=== PATIENT | female | born 1940 | race Caucasian/White ===

== ENCOUNTER 2023-01-01 07:29 | Emergency (ER) | payer MEDICARE, OTHER ==
[~2023-01-01] VITALS: Ht 162.6 cm; Wt 88.9 kg
[2023-01-01] MEDS ORDERED: TEMA15CA PO (08:10)
[2023-01-01] MEDS ORDERED: INSU100C4 SQ (08:10)
[2023-01-01] MEDS ORDERED: SITA100T PO (08:10)
[2023-01-01] MEDS ORDERED: SIRO1TAB6 PO (08:10)
[2023-01-01] MEDS ORDERED: GABA-536 PO (08:10)
[2023-01-01] MEDS ORDERED: ATOR40TA PO (08:10)
[2023-01-01] MEDS ORDERED: METF-494 PO (08:10)
[2023-01-01] MEDS ORDERED: LEVO50TA8 PO (08:10)
[2023-01-01] MEDS ORDERED: LIOT5TAB11 PO (08:10)
[2023-01-01] MEDS ORDERED: INSU100V7 SQ (08:10)
[2023-01-01] MEDS ORDERED: MIRT-73 PO (08:10)
[2023-01-01] MEDS ORDERED: CARV25TA2 PO (08:10)
[2023-01-01] MEDS ORDERED: AMLO-212 PO (08:10)
[2023-01-01] MEDS ORDERED: BENA40TA8 PO (08:10)
[2023-01-01] MEDS ORDERED: FLUO40CA49 PO (08:10)
[2023-01-01 08:17] LABS: BASOPHILS # (AUTO) 0.1 K/UL (0.0-0.2); BASOPHILS % (AUTO) 1.3 % (0.0-2.0); EOSINOPHILS # (AUTO) 0.1 K/uL (0.0-0.7); HEMATOCRIT 38.4 % (31.2-41.9); HEMOGLOBIN 12.4 g/dL (10.9-14.3); LYMPHOCYTES # (AUTO) 1.9 K/uL (0.8-4.8); LYMPHOCYTES % (AUTO) 25.9 % (20.5-51.5); MEAN CORPUSCULAR HEMOGLOBIN 25.5 uug (24.7-32.8); MEAN CORPUSCULAR HGB CONC 32 g/dL (32.3-35.6); MEAN CORPUSCULAR VOLUME 79.3 fL (75.5-95.3); MONOCYTES # (AUTO) 0.7 K/uL (0.1-1.30); MONOCYTES % (AUTO) 9.9 % (0.0-11.0); NEUTROPHILS # (AUTO) 4.5 K/uL (1.8-8.9); NEUTROPHILS % (AUTO) 60.9 % (38.5-71.5); PLATELET COUNT (AUTO) 338 K/uL (179-408); RED BLOOD CELL COUNT(AUTO) 4.84 MIL/uL (3.63-4.92); WHITE BLOOD COUNT (AUTO) 7.5 K/uL (3.8-11.8)
[2023-01-01 08:30] LABS: DIFFERENTIAL COMMENT 1
[2023-01-01 09:13] LABS: CALCIUM 9.3 mg/dL (8.5-10.1); CARBON DIOXIDE 24 mmol/L (21-32); CHLORIDE 101 mmol/L (98-107); GLUCOSE 275 mg/dL (74-106); SODIUM SERUM 136 mmol/L (136-145); UREA NITROGEN, BLOOD 23 mg/dL (7-18)
[2023-01-01 11:27] VITALS: BP 131/61; O2SAT 98
== END 2023-01-01 11:30 | disposition home or self-care (01) ==
LOC: ER 07:29
DX: M79.89 Other specified soft tissue disorders (principal); I25.10 Atherosclerotic heart disease of native coronary artery without angina pectoris; E11.40 Type 2 diabetes mellitus with diabetic neuropathy, unspecified; F32.A Depression, unspecified; E78.5 Hyperlipidemia, unspecified; E66.9 Obesity, unspecified; E03.9 Hypothyroidism, unspecified; Z79.4 Long term (current) use of insulin; Z79.899 Other long term (current) drug therapy; Z60.2 Problems related to living alone; Z88.2 Allergy status to sulfonamides
CPT/HCPCS: 36415; 85025; 85730; A4606; A4663

== ENCOUNTER 2023-03-04 08:06 | Inpatient (IN) | payer MEDICARE, OTHER ==
[~2023-03-04] VITALS: Ht 162.6 cm; Wt 86.4 kg
[~2023-03-04 08:06] MED LIST: AMLO-212 PO; ATOR40TA PO; BENA40TA8 PO; CARV25TA2 PO; FLUO40CA49 PO; GABA-536 PO; INSU100C4 SQ; INSU100V7 SQ; LEVO50TA8 PO; LIOT5TAB11 PO; METF-494 PO; MIRT-73 PO; SIRO1TAB6 PO; SITA100T PO; TEMA15CA PO
[2023-03-04 09:22] LABS: BASOPHILS # (AUTO) 0.2 K/UL (0.0-0.2); BASOPHILS % (AUTO) 1.8 % (0.0-2.0); EOSINOPHILS # (AUTO) 0.2 K/uL (0.0-0.7); EOSINOPHILS % (AUTO) 1.6 % (0.0-7.0); HEMATOCRIT 35.3 % (31.2-41.9); HEMOGLOBIN 11.2 g/dL (10.9-14.3); LYMPHOCYTES # (AUTO) 0.9 K/uL (0.8-4.8); LYMPHOCYTES % (AUTO) 8.1 % (20.5-51.5); MEAN CORPUSCULAR HEMOGLOBIN 25.1 uug (24.7-32.8); MEAN CORPUSCULAR HGB CONC 32 g/dL (32.3-35.6); MEAN CORPUSCULAR VOLUME 78.9 fL (75.5-95.3); MONOCYTES # (AUTO) 0.8 K/uL (0.1-1.30); MONOCYTES % (AUTO) 7.1 % (0.0-11.0); NEUTROPHILS # (AUTO) 8.9 K/uL (1.8-8.9); NEUTROPHILS % (AUTO) 81.4 % (38.5-71.5); PLATELET COUNT (AUTO) 329 K/uL (179-408); RED BLOOD CELL COUNT(AUTO) 4.47 MIL/uL (3.63-4.92); RED CELL DISTRIBUTION WIDTH 19.3 % (12.3-17.7)
[2023-03-04 09:30] LABS: DIFFERENTIAL COMMENT 1
[2023-03-04 09:35] LABS: CALCIUM 9.3 mg/dL (8.5-10.1); CARBON DIOXIDE 28 mmol/L (21-32); CHLORIDE 106 mmol/L (98-107); CREATININE 0.8 mg/dL (0.6-1.3); GLUCOSE 209 mg/dL (74-106); POTASSIUM 3.5 mmol/L (3.5-5.1); SODIUM SERUM 142 mmol/L (136-145); UREA NITROGEN, BLOOD 21 mg/dL (7-18)
[2023-03-04 09:49] LABS: ALANINE AMINOTRANSFERASE 116 U/L (14-59); ALBUMIN 3.1 g/dL (3.4-5.0); ALKALINE PHOSPHATASE 160 U/L (50-136); ASPARTATE AMINOTRANSFERASE 69 U/L (15-37); BILIRUBIN,DIRECT 0.2 mg/dL (0.0-0.2); BILIRUBIN,TOTAL 0.6 mg/dL (0.2-1.0); NT-PRO BNP 951 pg/mL (0-125); TOTAL PROTEIN, SERUM 6.8 g/dL (6.4-8.2)
[2023-03-04] MEDS ORDERED: DEXAMETHASONE SOD PHOSPHATE 4 MG INJ IV ONE (10:00)
[2023-03-04] MEDS ORDERED: CEFTRIAXONE 1 G in IV DEXTROSE 5% 50 ML IV ONE (10:00)
[2023-03-04] MEDS ORDERED: AZITHROMYCIN 250 MG TABLET PO ONE (10:00)
[2023-03-04] MEDS ORDERED: DEXAMETHASONE SOD PHOSPHATE 10 MG INJ ONE (10:09)
[2023-03-04] MEDS ORDERED: CEFTRIAXONE /D5W 50ML IVPB **ER PYXIS IV ONE (10:09)
[2023-03-04] MEDS ORDERED: AZITHROMYCIN 250 MG TABLET ONE (10:09)
[2023-03-04] MEDS ORDERED: ACETAMINOPHEN 325 MG TABLET PO PRN (14:30)
[2023-03-04] MEDS ORDERED: TEMAZEPAM 15 MG CAPSULE PO PRN (14:30)
[2023-03-04] MEDS ORDERED: ALBUTEROL SULFATE 2.5 MG/ 0.5 ML NEBU NEB PRN (14:30)
[2023-03-04] MEDS ORDERED: MORPHINE SULFATE 2 MG/1 ML DISP.SYRIN IV PRN (14:30)
[2023-03-04] MEDS ORDERED: DEXTROSE 50% 50 ML DISP.SYRIN IV PRN (14:30)
[2023-03-04] MEDS ORDERED: ONDANSETRON 4 MG/2 ML VIAL IV PRN (14:30)
[2023-03-04] MEDS ORDERED: MAGNESIUM HYDROXIDE 30 ML LIQUID UDC PO PRN (14:30)
[2023-03-04] MEDS: BLOOD SUGAR DIAGNOSTIC 1 EACH STRIP VI SCH ×2 (16:30→21:57)
[2023-03-04] MEDS ORDERED: GABAPENTIN 400 MG CAPSULE PO SCH (17:00)
[2023-03-04 20:40] VITALS: BP 186/82; TEMP 97.8; O2SAT 96
[2023-03-04] MEDS ORDERED: DOCUSATE SODIUM 250 MG CAPSULE PO SCH (21:00)
[2023-03-04] MEDS ORDERED: MIRTAZAPINE 15 MG TAB.RAPDIS PO SCH (21:00)
[2023-03-04] MEDS: INSULIN REGULAR, HUMAN 300 UNIT/3 ML VIAL SQ PRN (22:01)
[2023-03-04] MEDS: ATORVASTATIN 40 MG TABLET PO SCH (22:03)
[2023-03-04] MEDS ORDERED: INSULIN GLARGINE,HUM 300 UNITS/3 ML CARTRIDGE SQ ONE (22:06)
[2023-03-04] MEDS ORDERED: MIRTAZAPINE 15 MG TAB.RAPDIS ONE (22:07)
[2023-03-04] MEDS: DOCUSATE SODIUM 100 MG CAPSULE PO SCH (22:37)
[2023-03-04] MEDS: METOPROLOL TARTRATE 50 MG TABLET PO SCH (22:37)
[2023-03-04] MEDS: INSULIN GLARGINE,HUM 300 UNITS/3 ML CARTRIDGE SQ SCH (22:38)
[2023-03-05] VITALS: BP 155/67; TEMP 97.9; O2SAT 94
[2023-03-05 04:00] VITALS: BP 186/82; TEMP 97.9; O2SAT 96
[2023-03-05] MEDS: LEVOTHYROXINE SODIUM 50 MCG TABLET PO SCH (06:38)
[2023-03-05] MEDS: PANTOPRAZOLE SODIUM 40 MG TABLET.DR PO SCH (06:38)
[2023-03-05] MEDS: LIOTHYRONINE SODIUM 5 MCG TABLET PO SCH (06:39)
[2023-03-05] MEDS: BLOOD SUGAR DIAGNOSTIC 1 EACH STRIP VI SCH ×4 (06:43→20:44)
[2023-03-05 07:55] LABS: BASOPHILS # (AUTO) 0.1 K/UL (0.0-0.2); BASOPHILS % (AUTO) 0.4 % (0.0-2.0); HEMATOCRIT 35.2 % (31.2-41.9); HEMOGLOBIN 11.3 g/dL (10.9-14.3); LYMPHOCYTES # (AUTO) 1.4 K/uL (0.8-4.8); LYMPHOCYTES % (AUTO) 10.6 % (20.5-51.5); MEAN CORPUSCULAR HGB CONC 32 g/dL (32.3-35.6); MEAN CORPUSCULAR VOLUME 77.8 fL (75.5-95.3); MONOCYTES # (AUTO) 1.1 K/uL (0.1-1.30); MONOCYTES % (AUTO) 7.9 % (0.0-11.0); NEUTROPHILS # (AUTO) 11.1 K/uL (1.8-8.9); NEUTROPHILS % (AUTO) 81.1 % (38.5-71.5); PLATELET COUNT (AUTO) 396 K/uL (179-408); RED BLOOD CELL COUNT(AUTO) 4.52 MIL/uL (3.63-4.92); RED CELL DISTRIBUTION WIDTH 19.5 % (12.3-17.7); WHITE BLOOD COUNT (AUTO) 13.7 K/uL (3.8-11.8)
[2023-03-05 08:08] LABS: DIFFERENTIAL COMMENT 1
[2023-03-05 08:18] LABS: ALANINE AMINOTRANSFERASE 96 U/L (14-59); ALKALINE PHOSPHATASE 155 U/L (50-136); ASPARTATE AMINOTRANSFERASE 42 U/L (15-37); BILIRUBIN,TOTAL 0.4 mg/dL (0.2-1.0); CALCIUM 9.5 mg/dL (8.5-10.1); CARBON DIOXIDE 25 mmol/L (21-32); CHLORIDE 106 mmol/L (98-107); CREATININE 0.8 mg/dL (0.6-1.3); GLUCOSE 233 mg/dL (74-106); MAGNESIUM 2.1 mg/dL (1.8-2.4); PHOSPHOROUS 3.5 mg/dL (2.5-4.9); POTASSIUM 3.7 mmol/L (3.5-5.1); SODIUM SERUM 141 mmol/L (136-145); TOTAL PROTEIN, SERUM 7.1 g/dL (6.4-8.2); UREA NITROGEN, BLOOD 22 mg/dL (7-18)
[2023-03-05 08:27] LABS: THYROID STIMULATING HORMONE 0.422 mIU/mL (0.358-3.740)
[2023-03-05] MEDS: FLUOXETINE HCL 20 MG CAPSULE PO SCH (08:39)
[2023-03-05] MEDS: BENAZEPRIL HCL 20 MG TABLET PO SCH (08:39)
[2023-03-05] MEDS: METOPROLOL TARTRATE 50 MG TABLET PO SCH (08:40)
[2023-03-05] MEDS: LINAGLIPTIN 5 MG TABLET PO SCH (08:40)
[2023-03-05] MEDS: CEFTRIAXONE 1 G in IV DEXTROSE 5% 50 ML IV SCH (08:45)
[2023-03-05] MEDS: ENOXAPARIN SODIUM 30 MG/0.3 ML DISP.SYRIN SUBCUT SCH (08:47)
[2023-03-05] MEDS ORDERED: SIROLIMUS 3 MG PO SCH (09:00)
[2023-03-05] MEDS ORDERED: AMLODIPINE 5 MG TABLET PO SCH (09:00)
[2023-03-05] MEDS ORDERED: AMLODIPINE 5 MG TABLET PO ONE (09:00)
[2023-03-05] MEDS ORDERED: GABAPENTIN 400 MG CAPSULE PO SCH (09:00)
[2023-03-05 09:02] LABS: IRON, SERUM 35 ug/dL (50-175)
[2023-03-05] MEDS ORDERED: CEFTRIAXONE 1 G in IV DEXTROSE 5% 50 ML IV SCH (10:00)
[2023-03-05] MEDS: BUMETANIDE 1 MG TABLET PO SCH (10:00)
[2023-03-05] MEDS: AZITHROMYCIN IV 500 MG in IV DEXTROSE 5% 250 ML IV SCH (10:08)
[2023-03-05 11:46] VITALS: BP 169/65; TEMP 97.6; O2SAT 95
[2023-03-05] MEDS: INSULIN REGULAR, HUMAN 300 UNIT/3 ML VIAL SQ PRN ×2 (11:48→20:35)
[2023-03-05 14:28] VITALS: O2SAT 95
[2023-03-05 16:20] VITALS: BP 164/63; TEMP 97.7; O2SAT 96
[2023-03-05] MEDS: CARVEDILOL 25 MG TABLET PO SCH (17:15)
[2023-03-05 20:16] VITALS: BP 150/77; TEMP 98.2; O2SAT 93
[2023-03-05] MEDS: DOCUSATE SODIUM 100 MG CAPSULE PO SCH (20:34)
[2023-03-05] MEDS: ATORVASTATIN 40 MG TABLET PO SCH (20:34)
[2023-03-05] MEDS: INSULIN GLARGINE,HUM 300 UNITS/3 ML CARTRIDGE SQ SCH (20:41)
[2023-03-05] MEDS: MIRTAZAPINE 15 MG TABLET PO SCH (20:48)
[2023-03-06] VITALS (8 sets, daily range): BP systolic 122–183; BP diastolic 57–87; TEMP 97.5–98.4; O2SAT 92–97
[2023-03-06] MEDS: LIOTHYRONINE SODIUM 5 MCG TABLET PO SCH (06:33)
[2023-03-06] MEDS: BLOOD SUGAR DIAGNOSTIC 1 EACH STRIP VI SCH ×4 (06:33→21:14)
[2023-03-06] MEDS: LEVOTHYROXINE SODIUM 50 MCG TABLET PO SCH (06:33)
[2023-03-06] MEDS: PANTOPRAZOLE SODIUM 40 MG TABLET.DR PO SCH (06:33)
[2023-03-06] MEDS ORDERED: hydrALAZINE HCL 50 MG TABLET PO SCH (07:45)
[2023-03-06] MEDS: BUMETANIDE 1 MG TABLET PO SCH (08:33)
[2023-03-06] MEDS: FLUOXETINE HCL 20 MG CAPSULE PO SCH (08:33)
[2023-03-06] MEDS: LINAGLIPTIN 5 MG TABLET PO SCH (08:33)
[2023-03-06] MEDS: CARVEDILOL 25 MG TABLET PO SCH ×2 (08:33→17:19)
[2023-03-06] MEDS: BENAZEPRIL HCL 20 MG TABLET PO SCH (08:34)
[2023-03-06] MEDS: ENOXAPARIN SODIUM 30 MG/0.3 ML DISP.SYRIN SUBCUT SCH (08:34)
[2023-03-06] MEDS: CEFTRIAXONE 1 G in IV DEXTROSE 5% 50 ML IV SCH (08:35)
[2023-03-06] MEDS ORDERED: AMLODIPINE 5 MG TABLET PO ONE (09:15)
[2023-03-06] MEDS: AZITHROMYCIN IV 500 MG in IV DEXTROSE 5% 250 ML IV SCH (10:23)
[2023-03-06] MEDS: GABAPENTIN 300 MG CAPSULE PO SCH ×3 (11:56→17:19)
[2023-03-06] MEDS: INSULIN REGULAR, HUMAN 300 UNIT/3 ML VIAL SQ PRN ×2 (11:57→21:17)
[2023-03-06] MEDS: hydrALAZINE HCL 25 MG TABLET PO PRN (15:02)
[2023-03-06 15:12] LABS: BASOPHILS # (AUTO) 0.1 K/UL (0.0-0.2); BASOPHILS % (AUTO) 1.2 % (0.0-2.0); EOSINOPHILS # (AUTO) 0.4 K/uL (0.0-0.7); EOSINOPHILS % (AUTO) 3.6 % (0.0-7.0); HEMATOCRIT 37.2 % (31.2-41.9); HEMOGLOBIN 11.8 g/dL (10.9-14.3); LYMPHOCYTES # (AUTO) 1.7 K/uL (0.8-4.8); LYMPHOCYTES % (AUTO) 16.6 % (20.5-51.5); MEAN CORPUSCULAR HEMOGLOBIN 24.8 uug (24.7-32.8); MEAN CORPUSCULAR HGB CONC 32 g/dL (32.3-35.6); MEAN CORPUSCULAR VOLUME 78.2 fL (75.5-95.3); MONOCYTES # (AUTO) 1.1 K/uL (0.1-1.30); MONOCYTES % (AUTO) 11.1 % (0.0-11.0); NEUTROPHILS % (AUTO) 67.5 % (38.5-71.5); PLATELET COUNT (AUTO) 369 K/uL (179-408); RED BLOOD CELL COUNT(AUTO) 4.76 MIL/uL (3.63-4.92); RED CELL DISTRIBUTION WIDTH 19.3 % (12.3-17.7); WHITE BLOOD COUNT (AUTO) 10.4 K/uL (3.8-11.8)
[2023-03-06 15:17] LABS: DIFFERENTIAL COMMENT 1
[2023-03-06] MEDS: INSULIN GLARGINE,HUM 300 UNITS/3 ML CARTRIDGE SQ SCH (21:15)
[2023-03-06] MEDS: ATORVASTATIN 40 MG TABLET PO SCH (21:18)
[2023-03-06] MEDS: MIRTAZAPINE 15 MG TABLET PO SCH (21:18)
[2023-03-06] MEDS: DOCUSATE SODIUM 100 MG CAPSULE PO SCH (21:18)
[2023-03-07 04:38] VITALS: BP 178/83; TEMP 97.8; O2SAT 96
[2023-03-07] MEDS: PANTOPRAZOLE SODIUM 40 MG TABLET.DR PO SCH (06:08)
[2023-03-07] MEDS: LEVOTHYROXINE SODIUM 50 MCG TABLET PO SCH (06:08)
[2023-03-07] MEDS: LIOTHYRONINE SODIUM 5 MCG TABLET PO SCH (06:09)
[2023-03-07 07:25] LABS: BASOPHILS # (AUTO) 0.1 K/UL (0.0-0.2); BASOPHILS % (AUTO) 0.7 % (0.0-2.0); EOSINOPHILS # (AUTO) 0.4 K/uL (0.0-0.7); EOSINOPHILS % (AUTO) 4.9 % (0.0-7.0); HEMATOCRIT 37.7 % (31.2-41.9); HEMOGLOBIN 12.1 g/dL (10.9-14.3); LYMPHOCYTES # (AUTO) 1.8 K/uL (0.8-4.8); LYMPHOCYTES % (AUTO) 20.7 % (20.5-51.5); MEAN CORPUSCULAR HEMOGLOBIN 25.1 uug (24.7-32.8); MEAN CORPUSCULAR HGB CONC 32 g/dL (32.3-35.6); MEAN CORPUSCULAR VOLUME 78.1 fL (75.5-95.3); MONOCYTES # (AUTO) 1.1 K/uL (0.1-1.30); MONOCYTES % (AUTO) 12.9 % (0.0-11.0); NEUTROPHILS # (AUTO) 5.2 K/uL (1.8-8.9); NEUTROPHILS % (AUTO) 60.8 % (38.5-71.5); PLATELET COUNT (AUTO) 388 K/uL (179-408); RED BLOOD CELL COUNT(AUTO) 4.83 MIL/uL (3.63-4.92); WHITE BLOOD COUNT (AUTO) 8.5 K/uL (3.8-11.8)
[2023-03-07 07:27] LABS: DIFFERENTIAL COMMENT 1
[2023-03-07 07:35] LABS: ALANINE AMINOTRANSFERASE 67 U/L (14-59); ALBUMIN 2.7 g/dL (3.4-5.0); ALKALINE PHOSPHATASE 123 U/L (50-136); ASPARTATE AMINOTRANSFERASE 24 U/L (15-37); BILIRUBIN,TOTAL 0.3 mg/dL (0.2-1.0); CALCIUM 9.2 mg/dL (8.5-10.1); CARBON DIOXIDE 33 mmol/L (21-32); CHLORIDE 109 mmol/L (98-107); CREATININE 0.8 mg/dL (0.6-1.3); GLUCOSE 86 mg/dL (74-106); MAGNESIUM 1.7 mg/dL (1.8-2.4); PHOSPHOROUS 3.7 mg/dL (2.5-4.9); POTASSIUM 3.5 mmol/L (3.5-5.1); SODIUM SERUM 149 mmol/L (136-145); TOTAL PROTEIN, SERUM 6.7 g/dL (6.4-8.2); UREA NITROGEN, BLOOD 19 mg/dL (7-18)
[2023-03-07] MEDS: BLOOD SUGAR DIAGNOSTIC 1 EACH STRIP VI SCH ×4 (08:07→20:49)
[2023-03-07] MEDS ORDERED: AMLODIPINE 5 MG TABLET PO SCH (09:00)
[2023-03-07] MEDS: GABAPENTIN 300 MG CAPSULE PO SCH ×3 (09:14→17:42)
[2023-03-07] MEDS: FLUOXETINE HCL 20 MG CAPSULE PO SCH (09:15)
[2023-03-07] MEDS: LINAGLIPTIN 5 MG TABLET PO SCH (09:16)
[2023-03-07] MEDS: BENAZEPRIL HCL 20 MG TABLET PO SCH (09:16)
[2023-03-07] MEDS: ENOXAPARIN SODIUM 30 MG/0.3 ML DISP.SYRIN SUBCUT SCH (09:19)
[2023-03-07] MEDS: AZITHROMYCIN IV 500 MG in IV DEXTROSE 5% 250 ML IV SCH (09:33)
[2023-03-07] MEDS: CEFTRIAXONE 1 G in IV DEXTROSE 5% 50 ML IV SCH (09:33)
[2023-03-07] MEDS: CARVEDILOL 25 MG TABLET PO SCH ×2 (10:18→17:42)
[2023-03-07] MEDS ORDERED: MAGNESIUM OXIDE 400 MG TABLET PO ONE (11:30)
[2023-03-07 11:50] VITALS: BP 161/70; TEMP 98; O2SAT 96
[2023-03-07] MEDS: INSULIN REGULAR, HUMAN 300 UNIT/3 ML VIAL SQ PRN ×3 (12:00→20:51)
[2023-03-07] MEDS: hydrALAZINE HCL 25 MG TABLET PO PRN ×2 (14:58→20:31)
[2023-03-07 15:35] VITALS: BP 174/75; TEMP 98.8; O2SAT 92
[2023-03-07 20:21] VITALS: BP 165/65; TEMP 98.1; O2SAT 92
[2023-03-07] MEDS: ATORVASTATIN 40 MG TABLET PO SCH (20:28)
[2023-03-07] MEDS: MIRTAZAPINE 15 MG TABLET PO SCH (20:29)
[2023-03-07] MEDS: DOCUSATE SODIUM 100 MG CAPSULE PO SCH (20:29)
[2023-03-07] MEDS: FERROUS SULFATE 325 MG TABEC PO SCH (20:39)
[2023-03-07] MEDS: INSULIN GLARGINE,HUM 300 UNITS/3 ML CARTRIDGE SQ SCH (20:52)
[2023-03-07 21:32] VITALS: BP 135/67; TEMP 98.3
[2023-03-08 04:20] VITALS: BP 149/70; TEMP 98; O2SAT 92
[2023-03-08] MEDS: PANTOPRAZOLE SODIUM 40 MG TABLET.DR PO SCH (05:47)
[2023-03-08] MEDS: LEVOTHYROXINE SODIUM 50 MCG TABLET PO SCH (05:47)
[2023-03-08] MEDS: LIOTHYRONINE SODIUM 5 MCG TABLET PO SCH (05:49)
[2023-03-08] MEDS: BLOOD SUGAR DIAGNOSTIC 1 EACH STRIP VI SCH ×3 (06:32→17:55)
[2023-03-08 08:00] VITALS: BP 176/65; TEMP 97.9; O2SAT 95
[2023-03-08] MEDS ORDERED: BUMETANIDE 1 MG TABLET PO SCH (09:00)
[2023-03-08] MEDS: CARVEDILOL 25 MG TABLET PO SCH ×2 (09:29→17:58)
[2023-03-08] MEDS: CEFTRIAXONE 1 G in IV DEXTROSE 5% 50 ML IV SCH (09:29)
[2023-03-08] MEDS: FERROUS SULFATE 325 MG TABEC PO SCH (09:30)
[2023-03-08] MEDS: GABAPENTIN 300 MG CAPSULE PO SCH ×3 (09:30→17:55)
[2023-03-08] MEDS: BENAZEPRIL HCL 20 MG TABLET PO SCH (09:30)
[2023-03-08] MEDS: FLUOXETINE HCL 20 MG CAPSULE PO SCH (09:30)
[2023-03-08] MEDS: LINAGLIPTIN 5 MG TABLET PO SCH (09:31)
[2023-03-08] MEDS: ENOXAPARIN SODIUM 30 MG/0.3 ML DISP.SYRIN SUBCUT SCH (09:31)
[2023-03-08] MEDS: AZITHROMYCIN IV 500 MG in IV DEXTROSE 5% 250 ML IV SCH (10:23)
[2023-03-08 11:22] VITALS: BP 131/63; TEMP 98.8; O2SAT 99
[2023-03-08] MEDS: INSULIN REGULAR, HUMAN 300 UNIT/3 ML VIAL SQ PRN (12:35)
[2023-03-08 16:02] VITALS: BP 149/65; TEMP 97; O2SAT 92
[2023-03-08] MEDS ORDERED: Blood Sugar Diagnostic VI (17:34)
[2023-03-08] MEDS ORDERED: DEXT50DI8 IV (17:34)
[2023-03-08] MEDS ORDERED: ENOX30DI SUBCUT (17:34)
[2023-03-08] MEDS ORDERED: MAGN400O6 PO (17:34)
[2023-03-08] MEDS ORDERED: HYDR-894 PO (17:34)
[2023-03-08] MEDS ORDERED: BUME1TAB8 PO (17:34)
[2023-03-08] MEDS ORDERED: DOCU-141 PO (17:34)
[2023-03-08] MEDS ORDERED: ATOR40TA PO (17:34)
[2023-03-08] MEDS ORDERED: FERR325T28 PO (17:34)
[2023-03-08] MEDS ORDERED: TEMA15CA PO (17:34)
[2023-03-08] MEDS ORDERED: GABA300C PO (17:34)
[2023-03-08] MEDS ORDERED: Insulin Glargine,Hum SQ (17:34)
[2023-03-08] MEDS ORDERED: CARV25TA2 PO (17:34)
[2023-03-08] MEDS ORDERED: INSU100V28 SQ (17:34)
[2023-03-08] MEDS ORDERED: PANT40TA49 PO (17:34)
[2023-03-08] MEDS ORDERED: CEFT1VIA15 IV (17:34)
[2023-03-08] MEDS ORDERED: ACET325T53 PO (17:34)
[2023-03-08] MEDS ORDERED: MIRT-93 PO (17:34)
[2023-03-08] MEDS ORDERED: LINA5TAB PO (17:34)
[2023-03-08] MEDS ORDERED: ALBU2.5V13 NEB (17:34)
[2023-03-08 17:58] VITALS: BP 149/65
== END 2023-03-08 19:48 | DRG 871 ==
LOC: ER 08:06 → TELE3 20:32 → MEDSURG3 03-06 09:00
PROVIDERS: ADMIT Internal Medicine; ATTEND Internal Medicine
DX: A41.9 Sepsis, unspecified organism (principal); J18.9 Pneumonia, unspecified organism; J96.21 Acute and chronic respiratory failure with hypoxia; J44.0 Chronic obstructive pulmonary disease with (acute) lower respiratory infection; J44.1 Chronic obstructive pulmonary disease with (acute) exacerbation; D68.59 Other primary thrombophilia; C41.2 Malignant neoplasm of vertebral column; E11.65 Type 2 diabetes mellitus with hyperglycemia; Z74.09 Other reduced mobility; R74.01 Elevation of levels of liver transaminase levels; E03.9 Hypothyroidism, unspecified; E78.5 Hyperlipidemia, unspecified; E66.9 Obesity, unspecified; Z68.33 Body mass index [BMI] 33.0-33.9, adult; E88.09 Other disorders of plasma-protein metabolism, not elsewhere classified; I25.10 Atherosclerotic heart disease of native coronary artery without angina pectoris; I11.9 Hypertensive heart disease without heart failure; E11.40 Type 2 diabetes mellitus with diabetic neuropathy, unspecified; Z90.49 Acquired absence of other specified parts of digestive tract; R20.0 Anesthesia of skin; R94.31 Abnormal electrocardiogram [ECG] [EKG]; R53.1 Weakness; Z98.1 Arthrodesis status; Z79.84 Long term (current) use of oral hypoglycemic drugs; S09.90XA Unspecified injury of head, initial encounter; W19.XXXA Unspecified fall, initial encounter; Y92.039 Unspecified place in apartment as the place of occurrence of the external cause; Z99.81 Dependence on supplemental oxygen; Z79.899 Other long term (current) drug therapy; Z88.2 Allergy status to sulfonamides; Z79.4 Long term (current) use of insulin; Z92.3 Personal history of irradiation; Z90.710 Acquired absence of both cervix and uterus; Z80.0 Family history of malignant neoplasm of digestive organs; Z87.891 Personal history of nicotine dependence
CPT/HCPCS: 36415; 70450; 71045; 71250; 72125; 83550; 83605; 83735; 84100; 84443; 84484; 85025; 85730; 87040; 87077; 93005; 93307; A4606; A4663; G0378; J0456; J0696; J1100; J1650; J1815; J2405; J7050; Q0144

== ENCOUNTER 2023-03-08 21:06 | Inpatient (IN) | payer MEDICARE, OTHER ==
[~2023-03-08] VITALS: Ht 162.6 cm; Wt 86.2 kg
[2023-03-08 21:00] VITALS: BP 149/65; TEMP 98; O2SAT 91
[~2023-03-08 21:06] MED LIST changes: +ACET325T53 PO; +ALBU2.5V13 NEB; -AMLO-212 PO; +BUME1TAB8 PO; +Blood Sugar Diagnostic VI; +CEFT1VIA15 IV; +DEXT50DI8 IV; +DOCU-141 PO; +ENOX30DI SUBCUT; +FERR325T28 PO; +GABA300C PO; +HYDR-894 PO; +INSU100V28 SQ; +Insulin Glargine,Hum SQ; +LINA5TAB PO; +MAGN400O6 PO; +MIRT-93 PO; +PANT40TA49 PO; -SIRO1TAB6 PO
[2023-03-08] MEDS ORDERED: TEMAZEPAM 15 MG CAPSULE PO PRN (21:45)
[2023-03-08] MEDS ORDERED: ACETAMINOPHEN 325 MG TABLET-SA PATIENTS-PAIN ONLY PO PRN (21:45)
[2023-03-08] MEDS ORDERED: hydrALAZINE HCL 25 MG TABLET PO PRN (21:45)
[2023-03-08] MEDS ORDERED: DEXTROSE 50% 50 ML DISP.SYRIN IV PRN ×2 (21:45→22:00)
[2023-03-08] MEDS ORDERED: ALBUTEROL SULFATE 2.5 MG/ 0.5 ML NEBU NEB PRN (21:45)
[2023-03-08] MEDS ORDERED: MAGNESIUM HYDROXIDE 30 ML LIQUID UDC PO PRN (21:45)
[2023-03-08] MEDS ORDERED: INSULIN REGULAR, HUMAN 300 UNIT/3 ML VIAL SQ PRN (21:45)
[2023-03-08] MEDS: MIRTAZAPINE 15 MG TABLET PO SCH (23:12)
[2023-03-09 05:12] VITALS: BP 170/77; TEMP 98.1; O2SAT 95
[2023-03-09] MEDS: BLOOD SUGAR DIAGNOSTIC 1 EACH STRIP VI SCH ×4 (05:55→21:26)
[2023-03-09 06:00] VITALS: BP 144/78; O2SAT 95
[2023-03-09] MEDS: PANTOPRAZOLE SODIUM 40 MG TABLET.DR PO SCH (06:05)
[2023-03-09] MEDS: LEVOTHYROXINE SODIUM 50 MCG TABLET PO SCH (06:05)
[2023-03-09] MEDS: METFORMIN XR 500 MG TAB.SR.24H PO SCH ×2 (08:00→18:18)
[2023-03-09 08:25] VITALS: BP 148/96; TEMP 97.7; O2SAT 96
[2023-03-09] MEDS: GABAPENTIN 300 MG CAPSULE PO SCH ×3 (08:43→16:44)
[2023-03-09] MEDS: FLUOXETINE HCL 20 MG CAPSULE PO SCH (08:43)
[2023-03-09] MEDS: LIOTHYRONINE SODIUM 5 MCG TABLET PO SCH (08:44)
[2023-03-09] MEDS: FERROUS SULFATE 325 MG TABEC PO SCH (08:44)
[2023-03-09] MEDS: BUMETANIDE 1 MG TABLET PO SCH (08:44)
[2023-03-09] MEDS: BENAZEPRIL HCL 20 MG TABLET PO SCH (08:44)
[2023-03-09] MEDS: LINAGLIPTIN 5 MG TABLET PO SCH (08:45)
[2023-03-09] MEDS: CARVEDILOL 25 MG TABLET PO SCH ×2 (08:45→18:18)
[2023-03-09] MEDS: ENOXAPARIN SODIUM 30 MG/0.3 ML DISP.SYRIN SUBCUT SCH (08:45)
[2023-03-09] MEDS: INSULIN REGULAR, HUMAN 300 UNIT/3 ML VIAL SQ PRN ×4 (08:47→21:27)
[2023-03-09 14:22] VITALS: O2SAT 96
[2023-03-09] MEDS: CEFTRIAXONE 1 G in IV DEXTROSE 5% 50 ML IV SCH (16:39)
[2023-03-09 19:50] VITALS: BP 148/85; TEMP 98; O2SAT 95
[2023-03-09] MEDS: DOCUSATE SODIUM 100 MG CAPSULE PO SCH (21:25)
[2023-03-09] MEDS: MIRTAZAPINE 15 MG TABLET PO SCH (21:25)
[2023-03-09] MEDS: ATORVASTATIN 40 MG TABLET PO SCH (21:25)
[2023-03-09] MEDS: INSULIN GLARGINE,HUM 300 UNITS/3 ML CARTRIDGE SQ SCH (21:26)
[2023-03-10 00:35] VITALS: O2SAT 96
[2023-03-10 05:10] VITALS: BP 139/74; TEMP 97.6; O2SAT 95
[2023-03-10] MEDS: PANTOPRAZOLE SODIUM 40 MG TABLET.DR PO SCH (06:24)
[2023-03-10] MEDS: LEVOTHYROXINE SODIUM 50 MCG TABLET PO SCH (06:24)
[2023-03-10] MEDS: BLOOD SUGAR DIAGNOSTIC 1 EACH STRIP VI SCH ×4 (06:53→20:26)
[2023-03-10 07:54] VITALS: BP 122/51; TEMP 97.8; O2SAT 92
[2023-03-10 08:10] LABS: BASOPHILS # (AUTO) 0.1 K/UL (0.0-0.2); BASOPHILS % (AUTO) 0.7 % (0.0-2.0); EOSINOPHILS # (AUTO) 0.3 K/uL (0.0-0.7); HEMOGLOBIN 11.9 g/dL (10.9-14.3); LYMPHOCYTES # (AUTO) 1.8 K/uL (0.8-4.8); LYMPHOCYTES % (AUTO) 21.9 % (20.5-51.5); MEAN CORPUSCULAR HEMOGLOBIN 25.1 uug (24.7-32.8); MEAN CORPUSCULAR HGB CONC 32 g/dL (32.3-35.6); MEAN CORPUSCULAR VOLUME 78.1 fL (75.5-95.3); MONOCYTES # (AUTO) 0.7 K/uL (0.1-1.30); NEUTROPHILS # (AUTO) 5.3 K/uL (1.8-8.9); NEUTROPHILS % (AUTO) 64.4 % (38.5-71.5); PLATELET COUNT (AUTO) 360 K/uL (179-408); RED BLOOD CELL COUNT(AUTO) 4.74 MIL/uL (3.63-4.92); RED CELL DISTRIBUTION WIDTH 18.5 % (12.3-17.7); WHITE BLOOD COUNT (AUTO) 8.3 K/uL (3.8-11.8)
[2023-03-10 08:20] LABS: DIFFERENTIAL COMMENT 1
[2023-03-10 08:33] LABS: ALANINE AMINOTRANSFERASE 36 U/L (14-59); ALBUMIN 2.7 g/dL (3.4-5.0); ALKALINE PHOSPHATASE 110 U/L (50-136); ASPARTATE AMINOTRANSFERASE 16 U/L (15-37); BILIRUBIN,TOTAL 0.3 mg/dL (0.2-1.0); CALCIUM 9.3 mg/dL (8.5-10.1); CARBON DIOXIDE 32 mmol/L (21-32); CHLORIDE 108 mmol/L (98-107); GLUCOSE 99 mg/dL (74-106); MAGNESIUM 1.9 mg/dL (1.8-2.4); PHOSPHOROUS 3.4 mg/dL (2.5-4.9); POTASSIUM 3.7 mmol/L (3.5-5.1); SODIUM SERUM 145 mmol/L (136-145); TOTAL PROTEIN, SERUM 6.5 g/dL (6.4-8.2); UREA NITROGEN, BLOOD 25 mg/dL (7-18)
[2023-03-10] MEDS: CARVEDILOL 25 MG TABLET PO SCH ×2 (09:20→17:34)
[2023-03-10] MEDS: METFORMIN XR 500 MG TAB.SR.24H PO SCH ×2 (09:29→17:35)
[2023-03-10] MEDS: BUMETANIDE 1 MG TABLET PO SCH (09:29)
[2023-03-10] MEDS: LIOTHYRONINE SODIUM 5 MCG TABLET PO SCH (09:31)
[2023-03-10] MEDS: FERROUS SULFATE 325 MG TABEC PO SCH (09:32)
[2023-03-10] MEDS: BENAZEPRIL HCL 20 MG TABLET PO SCH (09:34)
[2023-03-10] MEDS: FLUOXETINE HCL 20 MG CAPSULE PO SCH (09:35)
[2023-03-10] MEDS: GABAPENTIN 300 MG CAPSULE PO SCH ×3 (09:35→17:33)
[2023-03-10] MEDS: LINAGLIPTIN 5 MG TABLET PO SCH (09:35)
[2023-03-10] MEDS: ENOXAPARIN SODIUM 30 MG/0.3 ML DISP.SYRIN SUBCUT SCH (09:37)
[2023-03-10] MEDS: INSULIN REGULAR, HUMAN 300 UNIT/3 ML VIAL SQ PRN ×3 (11:59→20:32)
[2023-03-10 12:00] VITALS: O2SAT 95
[2023-03-10] MEDS ORDERED: POTASSIUM CHLORIDE 20 MEQ TAB.PRT.SR PO ONE (12:45)
[2023-03-10 16:29] VITALS: BP 128/56; TEMP 97.8; O2SAT 97
[2023-03-10] MEDS: CEFTRIAXONE 1 G in IV DEXTROSE 5% 50 ML IV SCH (16:55)
[2023-03-10 20:19] VITALS: BP 97/64; TEMP 97.9; O2SAT 95
[2023-03-10] MEDS: DOCUSATE SODIUM 100 MG CAPSULE PO SCH (20:22)
[2023-03-10] MEDS: MIRTAZAPINE 15 MG TABLET PO SCH (20:22)
[2023-03-10] MEDS: ATORVASTATIN 40 MG TABLET PO SCH (20:22)
[2023-03-10] MEDS: INSULIN GLARGINE,HUM 300 UNITS/3 ML CARTRIDGE SQ SCH (20:29)
[2023-03-11 04:00] VITALS: BP 112/40; TEMP 97.7; O2SAT 98
[2023-03-11] MEDS: PANTOPRAZOLE SODIUM 40 MG TABLET.DR PO SCH (06:12)
[2023-03-11] MEDS: LEVOTHYROXINE SODIUM 50 MCG TABLET PO SCH (06:12)
[2023-03-11] MEDS: BLOOD SUGAR DIAGNOSTIC 1 EACH STRIP VI SCH ×4 (06:17→20:19)
[2023-03-11 07:38] VITALS: BP 140/65; TEMP 98; O2SAT 96
[2023-03-11] MEDS: BUMETANIDE 1 MG TABLET PO SCH (08:38)
[2023-03-11] MEDS: LIOTHYRONINE SODIUM 5 MCG TABLET PO SCH (08:39)
[2023-03-11] MEDS: LINAGLIPTIN 5 MG TABLET PO SCH (08:39)
[2023-03-11] MEDS: CARVEDILOL 25 MG TABLET PO SCH ×2 (08:39→17:49)
[2023-03-11] MEDS: GABAPENTIN 300 MG CAPSULE PO SCH ×3 (08:39→17:49)
[2023-03-11] MEDS: FLUOXETINE HCL 20 MG CAPSULE PO SCH (08:39)
[2023-03-11] MEDS: FERROUS SULFATE 325 MG TABEC PO SCH (08:39)
[2023-03-11] MEDS: METFORMIN XR 500 MG TAB.SR.24H PO SCH ×2 (08:40→17:50)
[2023-03-11] MEDS: BENAZEPRIL HCL 20 MG TABLET PO SCH (08:40)
[2023-03-11] MEDS: ENOXAPARIN SODIUM 30 MG/0.3 ML DISP.SYRIN SUBCUT SCH (08:41)
[2023-03-11] MEDS: INSULIN REGULAR, HUMAN 300 UNIT/3 ML VIAL SQ PRN ×2 (12:14→22:01)
[2023-03-11 15:58] VITALS: BP 145/65; TEMP 97.7; O2SAT 98
[2023-03-11] MEDS: CEFTRIAXONE 1 G in IV DEXTROSE 5% 50 ML IV SCH (16:10)
[2023-03-11 20:00] VITALS: BP 92/64; TEMP 97.7; O2SAT 93
[2023-03-11] MEDS: DOCUSATE SODIUM 100 MG CAPSULE PO SCH ×2 (20:35→20:40)
[2023-03-11] MEDS: ATORVASTATIN 40 MG TABLET PO SCH (20:35)
[2023-03-11] MEDS: MIRTAZAPINE 15 MG TABLET PO SCH (20:35)
[2023-03-11] MEDS: INSULIN GLARGINE,HUM 300 UNITS/3 ML CARTRIDGE SQ SCH (21:10)
[2023-03-12 04:00] VITALS: BP 167/70; TEMP 97.8; O2SAT 97
[2023-03-12 04:05] VITALS: O2SAT 95
[2023-03-12] MEDS: PANTOPRAZOLE SODIUM 40 MG TABLET.DR PO SCH (06:23)
[2023-03-12] MEDS: LEVOTHYROXINE SODIUM 50 MCG TABLET PO SCH (06:23)
[2023-03-12] MEDS: BLOOD SUGAR DIAGNOSTIC 1 EACH STRIP VI SCH ×4 (07:15→20:21)
[2023-03-12 08:30] VITALS: BP 126/72; TEMP 97.9; O2SAT 97
[2023-03-12] MEDS: GABAPENTIN 300 MG CAPSULE PO SCH ×3 (09:29→17:21)
[2023-03-12] MEDS: BENAZEPRIL HCL 20 MG TABLET PO SCH (09:32)
[2023-03-12] MEDS: LIOTHYRONINE SODIUM 5 MCG TABLET PO SCH (09:32)
[2023-03-12] MEDS: CARVEDILOL 25 MG TABLET PO SCH ×2 (09:32→17:21)
[2023-03-12] MEDS: FLUOXETINE HCL 20 MG CAPSULE PO SCH (09:32)
[2023-03-12] MEDS: BUMETANIDE 1 MG TABLET PO SCH (09:33)
[2023-03-12] MEDS: LINAGLIPTIN 5 MG TABLET PO SCH (09:33)
[2023-03-12] MEDS: ENOXAPARIN SODIUM 30 MG/0.3 ML DISP.SYRIN SUBCUT SCH (09:33)
[2023-03-12] MEDS: FERROUS SULFATE 325 MG TABEC PO SCH (09:33)
[2023-03-12] MEDS: METFORMIN XR 500 MG TAB.SR.24H PO SCH ×2 (09:34→17:23)
[2023-03-12] MEDS: INSULIN REGULAR, HUMAN 300 UNIT/3 ML VIAL SQ PRN ×3 (11:48→20:23)
[2023-03-12] MEDS: CEFTRIAXONE 1 G in IV DEXTROSE 5% 50 ML IV SCH (15:45)
[2023-03-12 16:00] VITALS: BP 145/69; TEMP 97.8; O2SAT 97
[2023-03-12] MEDS: MIRTAZAPINE 15 MG TABLET PO SCH (20:16)
[2023-03-12] MEDS: ATORVASTATIN 40 MG TABLET PO SCH (20:16)
[2023-03-12] MEDS: DOCUSATE SODIUM 100 MG CAPSULE PO SCH (20:16)
[2023-03-12 20:20] VITALS: BP 100/61; TEMP 97.7; O2SAT 97
[2023-03-12] MEDS: INSULIN GLARGINE,HUM 300 UNITS/3 ML CARTRIDGE SQ SCH (20:24)
[2023-03-13 01:29] VITALS: O2SAT 95
[2023-03-13 05:00] VITALS: BP 143/54; TEMP 97.9; O2SAT 98
[2023-03-13] MEDS: PANTOPRAZOLE SODIUM 40 MG TABLET.DR PO SCH (06:06)
[2023-03-13] MEDS: LEVOTHYROXINE SODIUM 50 MCG TABLET PO SCH (06:06)
[2023-03-13] MEDS: BLOOD SUGAR DIAGNOSTIC 1 EACH STRIP VI SCH ×4 (06:25→21:08)
[2023-03-13] MEDS: FLUOXETINE HCL 20 MG CAPSULE PO SCH (08:56)
[2023-03-13] MEDS: GABAPENTIN 300 MG CAPSULE PO SCH ×3 (08:56→17:10)
[2023-03-13] MEDS: BUMETANIDE 1 MG TABLET PO SCH (08:57)
[2023-03-13] MEDS: FERROUS SULFATE 325 MG TABEC PO SCH (08:57)
[2023-03-13] MEDS: CARVEDILOL 25 MG TABLET PO SCH ×2 (08:57→17:10)
[2023-03-13] MEDS: LIOTHYRONINE SODIUM 5 MCG TABLET PO SCH (08:57)
[2023-03-13] MEDS: LINAGLIPTIN 5 MG TABLET PO SCH (08:57)
[2023-03-13] MEDS: BENAZEPRIL HCL 20 MG TABLET PO SCH (08:57)
[2023-03-13] MEDS: ENOXAPARIN SODIUM 30 MG/0.3 ML DISP.SYRIN SUBCUT SCH (08:58)
[2023-03-13] MEDS: METFORMIN XR 500 MG TAB.SR.24H PO SCH ×2 (08:59→17:10)
[2023-03-13] MEDS: INSULIN REGULAR, HUMAN 300 UNIT/3 ML VIAL SQ PRN ×2 (11:20→21:07)
[2023-03-13] MEDS: CEFTRIAXONE 1 G in IV DEXTROSE 5% 50 ML IV SCH (16:42)
[2023-03-13 16:44] VITALS: O2SAT 98
[2023-03-13 20:00] VITALS: BP 143/61; TEMP 97.7; O2SAT 94
[2023-03-13] MEDS: ATORVASTATIN 40 MG TABLET PO SCH (21:01)
[2023-03-13] MEDS: MIRTAZAPINE 15 MG TABLET PO SCH (21:01)
[2023-03-13] MEDS: DOCUSATE SODIUM 100 MG CAPSULE PO SCH (21:01)
[2023-03-13] MEDS: INSULIN GLARGINE,HUM 300 UNITS/3 ML CARTRIDGE SQ SCH (21:07)
[2023-03-14 01:06] VITALS: O2SAT 98
[2023-03-14 04:00] VITALS: BP 138/56; TEMP 97.8; O2SAT 97
[2023-03-14] MEDS: BLOOD SUGAR DIAGNOSTIC 1 EACH STRIP VI SCH ×4 (05:47→21:09)
[2023-03-14] MEDS: LEVOTHYROXINE SODIUM 50 MCG TABLET PO SCH (06:13)
[2023-03-14] MEDS: PANTOPRAZOLE SODIUM 40 MG TABLET.DR PO SCH (06:13)
[2023-03-14 08:39] LABS: BASOPHILS # (AUTO) 0.1 K/UL (0.0-0.2); BASOPHILS % (AUTO) 1.2 % (0.0-2.0); EOSINOPHILS # (AUTO) 0.2 K/uL (0.0-0.7); EOSINOPHILS % (AUTO) 2.5 % (0.0-7.0); HEMATOCRIT 40.2 % (31.2-41.9); HEMOGLOBIN 12.6 g/dL (10.9-14.3); LYMPHOCYTES # (AUTO) 1.3 K/uL (0.8-4.8); LYMPHOCYTES % (AUTO) 18.1 % (20.5-51.5); MEAN CORPUSCULAR HEMOGLOBIN 24.8 uug (24.7-32.8); MEAN CORPUSCULAR HGB CONC 31 g/dL (32.3-35.6); MEAN CORPUSCULAR VOLUME 79.1 fL (75.5-95.3); MONOCYTES # (AUTO) 0.6 K/uL (0.1-1.30); MONOCYTES % (AUTO) 8.8 % (0.0-11.0); NEUTROPHILS # (AUTO) 4.8 K/uL (1.8-8.9); NEUTROPHILS % (AUTO) 69.4 % (38.5-71.5); PLATELET COUNT (AUTO) 344 K/uL (179-408); RED BLOOD CELL COUNT(AUTO) 5.09 MIL/uL (3.63-4.92); RED CELL DISTRIBUTION WIDTH 18.7 % (12.3-17.7); WHITE BLOOD COUNT (AUTO) 6.9 K/uL (3.8-11.8)
[2023-03-14 08:41] LABS: DIFFERENTIAL COMMENT 1
[2023-03-14] MEDS: FERROUS SULFATE 325 MG TABEC PO SCH (08:47)
[2023-03-14] MEDS: LIOTHYRONINE SODIUM 5 MCG TABLET PO SCH (08:48)
[2023-03-14] MEDS: GABAPENTIN 300 MG CAPSULE PO SCH ×3 (08:49→16:36)
[2023-03-14] MEDS: LINAGLIPTIN 5 MG TABLET PO SCH (08:49)
[2023-03-14] MEDS: FLUOXETINE HCL 20 MG CAPSULE PO SCH (08:49)
[2023-03-14] MEDS: BUMETANIDE 1 MG TABLET PO SCH (08:49)
[2023-03-14] MEDS: ENOXAPARIN SODIUM 30 MG/0.3 ML DISP.SYRIN SUBCUT SCH (08:51)
[2023-03-14] MEDS: METFORMIN XR 500 MG TAB.SR.24H PO SCH ×2 (08:56→17:15)
[2023-03-14] MEDS: CARVEDILOL 25 MG TABLET PO SCH ×2 (08:57→17:15)
[2023-03-14] MEDS: BENAZEPRIL HCL 20 MG TABLET PO SCH (08:58)
[2023-03-14] MEDS: INSULIN REGULAR, HUMAN 300 UNIT/3 ML VIAL SQ PRN ×2 (11:29→21:11)
[2023-03-14] MEDS: CEFTRIAXONE 1 G in IV DEXTROSE 5% 50 ML IV SCH (16:02)
[2023-03-14 16:54] VITALS: BP 146/64; TEMP 97.8; O2SAT 94
[2023-03-14 20:00] VITALS: BP 134/49; TEMP 97.8; O2SAT 94
[2023-03-14] MEDS: ATORVASTATIN 40 MG TABLET PO SCH (21:02)
[2023-03-14] MEDS: MIRTAZAPINE 15 MG TABLET PO SCH (21:02)
[2023-03-14] MEDS: DOCUSATE SODIUM 100 MG CAPSULE PO SCH (21:02)
[2023-03-14] MEDS: INSULIN GLARGINE,HUM 300 UNITS/3 ML CARTRIDGE SQ SCH (21:09)
[2023-03-14 21:44] VITALS: O2SAT 98
[2023-03-15 04:00] VITALS: BP 143/60; TEMP 97.6; O2SAT 96
[2023-03-15] MEDS: BLOOD SUGAR DIAGNOSTIC 1 EACH STRIP VI SCH ×4 (05:54→21:11)
[2023-03-15] MEDS: LEVOTHYROXINE SODIUM 50 MCG TABLET PO SCH (06:17)
[2023-03-15] MEDS: PANTOPRAZOLE SODIUM 40 MG TABLET.DR PO SCH (06:18)
[2023-03-15] MEDS: BENAZEPRIL HCL 20 MG TABLET PO SCH (08:55)
[2023-03-15] MEDS: FLUOXETINE HCL 20 MG CAPSULE PO SCH (08:58)
[2023-03-15] MEDS: LIOTHYRONINE SODIUM 5 MCG TABLET PO SCH (08:58)
[2023-03-15] MEDS: LINAGLIPTIN 5 MG TABLET PO SCH (08:59)
[2023-03-15] MEDS: BUMETANIDE 1 MG TABLET PO SCH (08:59)
[2023-03-15] MEDS: FERROUS SULFATE 325 MG TABEC PO SCH (08:59)
[2023-03-15] MEDS: GABAPENTIN 300 MG CAPSULE PO SCH ×3 (08:59→17:26)
[2023-03-15] MEDS: CARVEDILOL 25 MG TABLET PO SCH ×2 (09:00→17:28)
[2023-03-15] MEDS: METFORMIN XR 500 MG TAB.SR.24H PO SCH ×2 (09:03→17:26)
[2023-03-15] MEDS: ENOXAPARIN SODIUM 30 MG/0.3 ML DISP.SYRIN SUBCUT SCH (09:06)
[2023-03-15 12:00] VITALS: BP 167/78; TEMP 97.2; O2SAT 96
[2023-03-15] MEDS: INSULIN REGULAR, HUMAN 300 UNIT/3 ML VIAL SQ PRN ×2 (12:02→17:37)
[2023-03-15] MEDS: CEFTRIAXONE 1 G in IV DEXTROSE 5% 50 ML IV SCH (15:47)
[2023-03-15 16:13] VITALS: BP 120/70; TEMP 97.4; O2SAT 98
[2023-03-15 20:00] VITALS: BP 148/59; TEMP 97.9; O2SAT 98
[2023-03-15 20:59] VITALS: O2SAT 98
[2023-03-15] MEDS: DOCUSATE SODIUM 100 MG CAPSULE PO SCH (21:08)
[2023-03-15] MEDS: ATORVASTATIN 40 MG TABLET PO SCH (21:08)
[2023-03-15] MEDS: MIRTAZAPINE 15 MG TABLET PO SCH (21:08)
[2023-03-15] MEDS: INSULIN GLARGINE,HUM 300 UNITS/3 ML CARTRIDGE SQ SCH (21:13)
[2023-03-16 04:09] VITALS: BP 136/56; TEMP 98; O2SAT 98
[2023-03-16] MEDS: BLOOD SUGAR DIAGNOSTIC 1 EACH STRIP VI SCH ×3 (06:11→16:30)
[2023-03-16] MEDS: LEVOTHYROXINE SODIUM 50 MCG TABLET PO SCH (06:15)
[2023-03-16] MEDS: PANTOPRAZOLE SODIUM 40 MG TABLET.DR PO SCH (06:16)
[2023-03-16 07:48] VITALS: BP 137/73; TEMP 97.2; O2SAT 97
[2023-03-16 08:00] VITALS: BP 157/88; TEMP 97.2; O2SAT 96
[2023-03-16] MEDS: LINAGLIPTIN 5 MG TABLET PO SCH (09:08)
[2023-03-16] MEDS: FERROUS SULFATE 325 MG TABEC PO SCH (09:08)
[2023-03-16] MEDS: FLUOXETINE HCL 20 MG CAPSULE PO SCH (09:09)
[2023-03-16] MEDS: GABAPENTIN 300 MG CAPSULE PO SCH ×3 (09:09→17:00)
[2023-03-16] MEDS: BUMETANIDE 1 MG TABLET PO SCH (09:09)
[2023-03-16] MEDS: LIOTHYRONINE SODIUM 5 MCG TABLET PO SCH (09:10)
[2023-03-16] MEDS: ENOXAPARIN SODIUM 30 MG/0.3 ML DISP.SYRIN SUBCUT SCH (09:11)
[2023-03-16] MEDS: BENAZEPRIL HCL 20 MG TABLET PO SCH (09:16)
[2023-03-16] MEDS: CARVEDILOL 25 MG TABLET PO SCH ×2 (09:16→17:08)
[2023-03-16] MEDS: METFORMIN XR 500 MG TAB.SR.24H PO SCH (09:20)
[2023-03-16] MEDS: CEFTRIAXONE 1 G in IV DEXTROSE 5% 50 ML IV SCH (15:59)
[2023-03-16 16:00] VITALS: BP 110/65; TEMP 97.3; O2SAT 97
== END 2023-03-16 17:45 | disposition home health service (06) | DRG 193 ==
PROVIDERS: ADMIT Physical Medicine & Rehabilitation Pain Medicine; ATTEND Physical Medicine & Rehabilitation Pain Medicine
DX: J18.9 Pneumonia, unspecified organism (principal); A41.9 Sepsis, unspecified organism; J96.21 Acute and chronic respiratory failure with hypoxia; D68.59 Other primary thrombophilia; J44.0 Chronic obstructive pulmonary disease with (acute) lower respiratory infection; E03.9 Hypothyroidism, unspecified; E11.65 Type 2 diabetes mellitus with hyperglycemia; E66.9 Obesity, unspecified; Z90.710 Acquired absence of both cervix and uterus; Z68.32 Body mass index [BMI] 32.0-32.9, adult; E78.5 Hyperlipidemia, unspecified; I11.9 Hypertensive heart disease without heart failure; Z87.891 Personal history of nicotine dependence; Z88.2 Allergy status to sulfonamides; Z90.49 Acquired absence of other specified parts of digestive tract; Z92.3 Personal history of irradiation; R53.1 Weakness; R29.6 Repeated falls; R53.83 Other fatigue
CPT/HCPCS: 36415; 83735; 84100; 85025; 97535-GO-CO; A4663; J0696; J1650; J1815